=== PATIENT | male | born 1940 | race Caucasian/White ===

== ENCOUNTER 2018-11-02 20:24 | Observation (INO) ==
[2018-11-02] MEDS ORDERED: SODIUM CHLORIDE 0.9% 1000ML 1,000 ML IV SCH (21:00)
[2018-11-02 21:11] LABS: Basophils # (auto) 0.03 K/uL (0-0.2); Basophils % (auto) 0.4 %; Eosinophils # (auto) 0.49 K/uL (0-0.5); Eosinophils % (auto) 6.9 %; Hematocrit (blood only) 41.1 % (42-52); Hemoglobin 14.9 g/dL (14.0-18.0); Immature Granulocytes # (auto) 0.01 K/uL (0.00-0.02); Immature Granulocytes % (auto) 0.1 %; Lymphocytes # (auto) 1.76 K/uL (1.2-3.4); Lymphocytes % (auto) 24.8 %; Mean Corpuscular Hemoglobin 31.2 pg (25-34); Mean Corpuscular Hgb Conc 36.3 g/dL (32-36); Mean Platelet Volume 9.3 fL (7.4-10.4); Monocytes # (auto) 0.59 K/uL (0.11-0.59); Monocytes % (auto) 8.3 %; Neutrophils # (auto) 4.22 K/uL (1.4-6.5); Neutrophils % (auto) 59.5 %; Platelet Count 240 K/uL (130-400); RDW Coefficient of Variation 13.1 % (11.5-14.5); RDW Standard Deviation 41.8 fL (36.4-46.3); Red Blood Count 4.78 M/uL (4.7-6.1)
[2018-11-02 21:26] LABS: Alanine Aminotransferase 22 U/L (12-78); Albumin Level 3.2 gm/dl (3.4-5.0); Aspartate Aminotransferase 16 U/L (15-37); BUN Creatinine Ratio 6.9 (10-20); Blood Urea Nitrogen 9 mg/dl (7-18); Calcium 8.7 mg/dl (8.5-10.1); Carbon Dioxide 24 mmol/L (21-32); Chloride 111 mmol/L (98-107); Creatinine Clr Calc Pharmacy 51.5 ml/min; Est GFR (African American) 62.9; Est GFR (Non-African American) 54.3; Glucose 134 mg/dl (70-99); Magnesium 2.1 mg/dl (1.8-2.4); Potassium 3.3 mmol/L (3.5-5.1); Sodium 143 mmol/L (136-145)
[2018-11-02 21:36] LABS: Alkaline Phosphatase 66 U/L (45-117); Bilirubin,Total 0.7 mg/dl (0.2-1); Globulin 3.1 gm/dl (2.5-4.0); Total Protein 6.3 gm/dl (6.4-8.2); Troponin I < 0.015 ng/ml (0-0.045)
--- NOTE | 2018-11-02 22:00 | XRay Report ---
XR chest 1V portable CLINICAL HISTORY: weakness COMPARISON STUDY: No previous studies for comparison. FINDINGS: Lung volumes are normal. Lungs are clear. There is no pneumothorax or pleural effusion. Mil d cardiomegaly is noted. Mediastinal contours are normal. There is no evidence for pulmonary edema. IMPRESSION: 1. No acute cardiopulmonary findings. 2. Mild cardiomegaly. Electronically signed by: Shay Byrnes M.D. 11/02/2018 9:59 PM
[2018-11-02 23:29] LABS: Appearance Urine Clear (Clear); Bilirubin Urine Negative (Negative); Blood Urine Negative (Negative); Color Urine Yellow; Glucose Urine UA Negative (Negative); Ketones Urine Negative (Negative); Leukocyte Esterase Urine Negative (Negative); Nitrite Urine Negative (Negative); Protein Urine Negative (Negative); Specific Gravity Urine 1.013 (1.000-1.030); Urobilinogen Urine Negative (Negative)
--- NOTE | 2018-11-02 23:38 | Emergency Department Note ---
Entered by Mary Vasquez acting as a scribe for Tello Lemus MD ED Provider Note CHIEF COMPLAINT: Syncope HISTORY OF PRESENT ILLNESS: The patient is a 77 year old male who presents to the Emergency Room with complaints of two episodes of syncope that occurred just prior to arrival. The patient states that he was at a football game and was leaning on a fence when he hit his elbow on this fence, stating that a "hot flash went right through me". He states that once his elbow began to feel better he went to lean his arms back on the fence when he fell forward. The patient states that he did not hit his head. He states that he woke up after this episode and sat up. The patient states that after he got up he had another episode of syncope. Per EMS, the patient's blood pressure was low when they arrived. He was given 300 mL of IV fluids by EMS. He had some transient nausea. Pt denies headache, fevers, chills, diaphoresis, visual changes, neck pain, chest pain, breathing difficulties, vomiting, abdominal pain, back pain, melena, hematochezia, urinary symptoms, numbness, lymphadenopathy, rash, or other complaints. REVIEW OF SYSTEMS: See HPI for pertinent positives and negatives. A total of ten systems were reviewed and were otherwise negative. PMHx/PSHx: Tendon surgery, left hand SOCIAL HISTORY: Patient lives at home. PHYSICAL EXAM: GENERAL: Awake, alert, well-appearing, in no distress HENT: Normocephalic, atraumatic. Oropharynx unremarkable. EYES: PERRL. Normal conjunctiva. Sclera non-icteric. NECK: Inspection normal. Non-tender. Supple. No nuchal rigidity. FROM. No nighat s. RESPIRATORY: Clear to auscultation. No wheezes. No rales. Normal respiratory effort. CARDIAC: Normal rate. Normal rhythm. No murmurs. No rubs. Extremities warm and well perfused. Pulses equal. No JVD. GI: Soft, non-distended. No tenderness to palpation. No rebound or guarding. No masses. RECTAL: Deferred. MUSCULOSKELETAL: Atraumatic. Chest examination reveals no tenderness. The back is symmetrical on inspection without obvious abnormality. There is no CVA tenderness to palpation. No joint edema. LOWER EXTREMITIES: Calves are equal size bilaterally and non-tender. No edema. No discoloration. NEURO: Normal sensorium. No sensory or motor deficits noted. SKIN: No rash or jaundice noted. EMERGENCY DEPARTMENT COURSE: 2131: Past medical records reviewed. The patient was evaluated in room B5, and a complete history and physical examination were performed. 2299: The patient was reassessed and is doing well. Updated on findings and need for further monitoring in the hospital. 2314: The patient will be further evaluated by the cushion cover inspector hospitalist who accepts the patient for further evaluation. MEDICAL DECISION MAKING: B5 Triage Nursing notes reviewed and agree them. Additional history obtained from the family. The patient's history was concerning for syncope. Differential diagnosis: Etiologies such as infection, hypoglycemia, electrolyte abnormalities, cardiac sources, intracerebral event, toxicologic, neurologic, vasovagal, as well as others were entertained. Physical examination: As above. No injury sustained. Neurologically intact. Alert and oriented. ER treatment provided: IV hydration with normal saline On reassessment the patient felt better. Diagnostics interpretation by me: Cardiac monitoring: The patient was placed on continuous cardiac monitoring and observed. It revealed a normal sinus rhythm without ectopy or evidence of dysrhythmia. ECG: Normal without ischemia. The labs revealed an unremarkable CBC and chemistry panel except for slight hypokalemia. Imaging studies: Chest x-ray was performed and was negative for any acute disease. Consultation: A consultation was placed with Dr. Leon Cline, the hospitalist. The case was discussed and diagnostics were reviewed. He requested a head CT be ordered to assist him with the admission process. This was done. The patient was evaluated in the ER for further treatment. IMPRESSION: Syncope Hypotension Hypokalemia PLAN: Admission The scribe's documentation has been prepared under my direction and personally reviewed by me in its entirety. I confirm that the note above accurately reflects all work, treatment, procedures, and medical decision making performed by me. Impression & Plan Syncope, Hypotension Past Med/Surg History Medical History No significant past medical history Family History Other No pertinent family history in first degree relatives Social History Preferred Language: Italian Feels Safe at Home: Yes Smoking Status: Never smoker Results & Data Vital Signs Vital Signs - 24 hr 11/02/18 20:41 11/02/18 20:53 11/02/18 20:58 Temperature 36.9 C Temperature Source Oral Sepsis Recent Fever Within 48 Hours No Sepsis New/Unexplained Change in Mental Status No Sepsis Action Taken by Nursing No Action Required Pulse Rate 74 Pulse Rate from SpO2 Sensor Respiratory Rate 18 Blood Pressure 149/75 H Blood Pressure Mean 99 Pulse Oximetry 98 96 97 Oxygen Delivery Method Room Air Room Air Room Air 11/02/18 21:00 11/02/18 21:30 11/02/18 22:00 Temperature Temperature Source Sepsis Recent Fever Within 48 Hours Sepsis New/Unexplained Change in Mental Status Sepsis Action Taken by Nursing Pulse Rate 63 68 66 Pulse Rate from SpO2 Sensor 65 68 64 Respiratory Rate 23 19 20 Blood Pressure 114/70 138/73 138/69 Blood Pressure Mean 84 94 92 Pulse Oximetry 98 96 95 Oxygen Delivery Method Room Air Room Air Room Air 11/02/18 22:30 11/02/18 23:00 Temperature Temperature Source Sepsis Recent Fever Within 48 Hours Sepsis New/Unexplained Change in Mental Status Sepsis Action Taken by Nursing Pulse Rate 77 61 Pulse Rate from SpO2 Sensor 66 62 Respiratory Rate 24 14 Blood Pressure 130/76 135/78 Blood Pressure Mean 94 97 Pulse Oximetry 98 97 Oxygen Delivery Method Room Air Room Air Home Medications Current Medication List: was personally reviewed by me Laboratory Data Attestation: I reviewed the patient's lab results. Result diagrams: 11/02/18 19:50 11/02/18 19:50 Lab Results 11/02/18 11/02/18 11/02/18 Range/Units 19:50 19:50 23:15 WBC 7.10 (4.8-10.8) K/uL RBC 4.78 (4.7-6.1) M/uL Hgb 14.9 (14.0-18.0) g/dL Hct 41.1 L (42-52) % MCV 86.0 (80-100) fL MCH 31.2 (25-34) pg MCHC 36.3 H (32-36) g/dL RDW Std Deviation 41.8 (36.4-46.3) fL RDW Coeff of Heladio 13.1 (11.5-14.5) % Plt Count 240 (130-400) K/uL MPV 9.3 (7.4-10.4) fL Immature Gran % (Auto) 0.1 % Neut % (Auto) 59.5 % Lymph % (Auto) 24.8 % [place] % (Auto) 8.3 % Eos % (Auto) 6.9 % Baso % (Auto) 0.4 % Immature Gran # (Auto) 0.01 (0.00-0.02) K/uL Neut # (Auto) 4.22 (1.4-6.5) K/uL Lymph # (Auto) 1.76 (1.2-3.4) K/uL [place] # (Auto) 0.59 (0.11-0.59) K/uL Eos # (Auto) 0.49 (0-0.5) K/uL Baso # (Auto) 0.03 (0-0.2) K/uL Sodium 143 (136-145) mmol/L Potassium 3.3 L (3.5-5.1) mmol/L Chloride 111 H (98-107) mmol/L Carbon Dioxide 24 (21-32) mmol/L Anion Gap 8.0 (3-11) BUN 9 (7-18) mg/dl Creatinine 1.26 (0.6-1.4) mg/dl Est Cr Clr Drug Dosing 51.5 ml/min Est GFR ( Amer) 62.9 Est GFR (Non-Af Amer) 54.3 BUN/Creatinine Ratio 6.9 L (10-20) Glucose 134 H (70-99) mg/dl Calcium 8.7 (8.5-10.1) mg/dl Magnesium 2.1 (1.8-2.4) mg/dl Total Bilirubin 0.7 (0.2-1) mg/dl AST 16 (15-37) U/L ALT 22 (12-78) U/L Alkaline Phosphatase 66 (45-117) U/L Troponin I < 0.015 (0-0.045) ng/ml Total Protein 6.3 L (6.4-8.2) gm/dl Albumin 3.2 L (3.4-5.0) gm/dl Globulin 3.1 (2.5-4.0) gm/dl Albumin/Globulin Ratio 1.0 (0.9-2) TSH 2.840 (0.300-4.500) uIu/ml Urine Color Yellow Urine Appearance Clear (Clear) Urine pH 7.0 (4.5-7.5) Ur Specific [place] 1.013 (1.000-1.030) Urine Protein Negative (Negative) Urine Glucose (UA) Negative (Negative) Urine Ketones Negative (Negative) Urine Blood Negative (Negative) Urine Nitrite Negative (Negative) Urine Bilirubin Negative (Negative) Urine Urobilinogen Negative (Negative) Ur Leukocyte Esterase Negative (Negative) Administered Medications Sodium Chloride (Nss 1000ml) 1,000 mls @ 125 mls/hr IV .Q8H RAVEN Stop: 11/03/18 04:59 Last Admin: 11/02/18 21:33 Dose: 125 mls/hr Documented by: [id number] Imaging Data Radiologist's Impression: Radiology results as stated below per my review and the radiologist's interpretation: XR chest 1V portable CLINICAL HISTORY: weakness COMPARISON STUDY: No previous studies for comparison. FINDINGS: Lung volumes are normal. Lungs are clear. There is no pneumothorax or pleural effusion. Mild cardiomegaly is noted. Mediastinal contours are normal. There is no evidence for pulmonary edema. IMPRESSION: 1. No acute cardiopulmonary findings. 2. Mild cardiomegaly. Electronically signed by: Shay Byrnes M.D. 11/02/2018 9:59 PM ECG Data Attestation: I personally reviewed and interpreted this ECG as follows: Indication: syncope Rate (beats per minute): 69 Rhythm: normal sinus Findings: + Q waves (inferior); no PAC, no PVC, no ST depression and no ST elevation Blood Pressure Blood Pressure Findings: Normal blood pressure Discharge Plan Visit Data Chief Complaint: Syncope Stated Complaint: syncope ED Provider: Tello Lemus Discharge Problem: Syncope, Hypotension Patient Disposition: Being Evaluated by Hospitalist Forms Stand Alone Forms: My [facility] [employer] Prescriptions Prescriptions: No Action No Known Home Medications RF: 0 Referrals Referrals: Urbano Guerrero MD [Primary Care Provider] - Discharge Problem: Syncope Qualifiers: Syncope type: unspecified Qualified Code(s): R55 - Syncope and collapse Hypotension Qualifiers: Hypotension type: unspecified hypotension type Qualified Code(s): I95.9 - Hypotension, unspecified The scribe's documentation has been prepared under my direction and personally reviewed by me in its entirety. I confirm that the note above accurately reflects all work, treatment, procedures, and medical decision making performed by me.
[2018-11-03] MEDS ORDERED: OPTIRAY 320 125ml IV PRN (02:09)
[2018-11-03] MEDS ORDERED: MAGNESIUM HYDROXIDE SUSP 30 ML UDC PO PRN (02:24)
[2018-11-03] MEDS ORDERED: ACETAMINOPHEN 325 MG TAB PO PRN (02:24)
[2018-11-03] MEDS ORDERED: ONDANSETRON INJ 2 MG/ML 2 ML VIAL IV PRN (02:24)
[2018-11-03] MEDS ORDERED: ALUMINUM/MAGNESIUM SUSP 30 ML UDC PO PRN (02:24)
--- NOTE | 2018-11-03 05:07 | History & Physical Report ---
Date of Service November 03, 2018 Assessment & Plan (1) Syncope: Syncope x2, seconds apart- The patient will be admitted to telemetry for serial cardiac enzymes, serial EKG's, cardiac rhythm monitoring and a 2-D echocardiogram with Dopplers. CT of head negative. Order CTA head and neck. Start aspirin 81 mg p.o. daily. NSS + KCl 20 mEq at 100 mils per hour. Patient reports that he felt dehydrated prior to the event, and is likely more of a vasovagal syncopal event. Consult neurology Present on Admission?: Yes (2) Hypokalemia: Replace with IV fluids, and recheck in the a.m. Present on Admission?: Yes (3) Hyperglycemia: Check hemoglobin A1c and fasting lipid panel in the a.m. Present on Admission?: Yes History of Present Illness Chief Complaint: The patient presents to the emergency department with 2 syncopal episodes that occurred just prior to arrival. Primary Care Provider: Urbano Guerrero MD The patient is a 77-year-old male who reports he was leaning over a fence at a baseball game, his right arm slipped and his elbow jabbed against the fence. He was rubbing his arm due to the pain, and the next thing he knew he was looking up at the darline. He then reports that he tried to get up, and he passed out again. There was then onlookers who came by, and would not allow him to get up anymore at that point. EMS then came, and drove him to the emergency department for assessment. 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 Beliefs That Will Affect Care: None Current Living Situation: Alone Current Living Situation Comment: went to [place] [facility] Feels Safe at Home: Yes Safety Concerns: Feels Safe At This Time Smoking Status: Never smoker Hx Alcohol Use: Yes Alcohol type: beer Hx Substance Use: No Review of Systems Review of Systems: The patient denies chest pain, palpitations, shortness of breath, dyspnea on exertion, cough, lower extremity swelling, sore throat, fevers, chills, sweats, weight change, fatigue, nausea, vomiting, diarrhea , constipation, abdominal pain, pelvic pain, blood in urine or stool, dysuria, urinary frequency or urgency, rash, abnormal bruising or bleeding, focal weakness, numbness or tingling in arms or legs, generalized arthralgias or myalgias, back or neck pain, or night sweats. The review of systems is otherwise negative other than for that already noted above, and at least 10 systems have been reviewed. Physical Exam Physical Exam: The patient is awake, alert and oriented 3, well developed and well nourished, normocephalic and atraumatic, lying in bed and in no acute distress. HEENT--PERRL, EOMI, mucous membranes and oropharynx dry. Neck--supple. No JVD. No bruits. Thyroid normal, trachea midline, no adenopathy. Heart--normal S1 and S2. No murmurs, rubs or gallops. Lungs--clear bilaterally, no respiratory distress, no accessory muscle use. Abdomen--normal bowel sounds and soft. Nontender. Nondistended, no hernias or masses, no organomegaly. Extremities--no cyanosis or clubbing. No edema. There are good distal pulses b/l. Dermatologic--normal skin turgor, normal color, no abnormal lymph nodes, no rash. Neurologic--cranial nerves II through XII grossly intact. Rheumatologic--normal range of motion. Psychiatric--normal affect. Results & Data Vital Signs (Past 12 Hours) Vital Signs Temp Pulse Pulse Resp BP BP Pulse Ox 11/03/18 04:31 70 11/03/18 02:43 61 159/73 H 11/03/18 02:16 97.9 F 66 16 99 11/03/18 01:51 54 L 16 126/78 96 11/03/18 01:30 57 L 17 126/78 96 11/03/18 01:00 56 L 16 131/66 97 11/03/18 00:30 64 22 110/66 96 11/03/18 00:01 60 19 133/75 97 11/02/18 23:45 68 22 104/72 99 11/02/18 23:31 134/97 11/02/18 23:08 18 156/101 H 99 11/02/18 23:00 61 14 135/78 97 11/02/18 22:30 77 24 130/76 98 11/02/18 22:00 66 20 138/69 95 11/02/18 21:30 68 19 138/73 96 11/02/18 21:00 63 23 114/70 98 11/02/18 20:58 97 11/02/18 20:53 96 11/02/18 20:41 98.4 F 74 18 149/75 H 98 Laboratory Results Laboratory Results WBC 7.10 K/uL (4.8-10.8) 11/02/18 19:50 RBC 4.78 M/uL (4.7-6.1) 11/02/18 19:50 Hgb 14.9 g/dL (14.0-18.0) 11/02/18 19:50 Hct 41.1 % (42-52) L 11/02/18 19:50 MCV 86.0 fL (80-100) 11/02/18 19:50 MCH 31.2 pg (25-34) 11/02/18 19:50 MCHC 36.3 g/dL (32-36) H 11/02/18 19:50 RDW Std Deviation 41.8 fL (36.4-46.3) 11/02/18 19:50 RDW Coeff of Heladio 13.1 % (11.5-14.5) 11/02/18 19:50 Plt Count 240 K/uL (130-400) 11/02/18 19:50 MPV 9.3 fL (7.4-10.4) 11/02/18 19:50 Immature Gran % (Auto) 0.1 % 11/02/18 19:50 Neut % (Auto) 59.5 % 11/02/18 19:50 Lymph % (Auto) 24.8 % 11/02/18 19:50 [place] % (Auto) 8.3 % 11/02/18 19:50 Eos % (Auto) 6.9 % 11/02/18 19:50 Baso % (Auto) 0.4 % 11/02/18 19:50 Immature Gran # (Auto) 0.01 K/uL (0.00-0.02) 11/02/18 19:50 Neut # (Auto) 4.22 K/uL (1.4-6.5) 11/02/18 19:50 Lymph # (Auto) 1.76 K/uL (1.2-3.4) 11/02/18 19:50 [place] # (Auto) 0.59 K/uL (0.11-0.59) 11/02/18 19:50 Eos # (Auto) 0.49 K/uL (0-0.5) 11/02/18 19:50 Baso # (Auto) 0.03 K/uL (0-0.2) 11/02/18 19:50 Sodium 143 mmol/L (136-145) 11/02/18 19:50 Potassium 3.3 mmol/L (3.5-5.1) L 11/02/18 19:50 Chloride 111 mmol/L (98-107) H 11/02/18 19:50 Carbon Dioxide 24 mmol/L (21-32) 11/02/18 19:50 Anion Gap 8.0 (3-11) 11/02/18 19:50 BUN 9 mg/dl (7-18) 11/02/18 19:50 Creatinine 1.26 mg/dl (0.6-1.4) 11/02/18 19:50 Est Cr Clr Drug Dosing 51.5 ml/min 11/02/18 19:50 Est GFR ( Amer) 62.9 11/02/18 19:50 Est GFR (Non-Af Amer) 54.3 11/02/18 19:50 BUN/Creatinine Ratio 6.9 (10-20) L 11/02/18 19:50 Glucose 134 mg/dl (70-99) H 11/02/18 19:50 Calcium 8.7 mg/dl (8.5-10.1) 11/02/18 19:50 Magnesium 2.1 mg/dl (1.8-2.4) 11/02/18 19:50 Total Bilirubin 0.7 mg/dl (0.2-1) 11/02/18 19:50 AST 16 U/L (15-37) 11/02/18 19:50 ALT 22 U/L (12-78) 11/02/18 19:50 Alkaline Phosphatase 66 U/L (45-117) 11/02/18 19:50 Troponin I < 0.015 ng/ml (0-0.045) 11/02/18 19:50 Total Protein 6.3 gm/dl (6.4-8.2) L 11/02/18 19:50 Albumin 3.2 gm/dl (3.4-5.0) L 11/02/18 19:50 Globulin 3.1 gm/dl (2.5-4.0) 11/02/18 19:50 Albumin/Globulin Ratio 1.0 (0.9-2) 11/02/18 19:50 TSH 2.840 uIu/ml (0.300-4.500) 11/02/18 19:50 Urine Color Yellow 11/02/18 23:15 Urine Appearance Clear (Clear) 11/02/18 23:15 Urine pH 7.0 (4.5-7.5) 11/02/18 23:15 Ur Specific [place] 1.013 (1.000-1.030) 11/02/18 23:15 Urine Protein Negative (Negative) 11/02/18 23:15 Urine Glucose (UA) Negative (Negative) 11/02/18 23:15 Urine Ketones Negative (Negative) 11/02/18 23:15 Urine Blood Negative (Negative) 11/02/18 23:15 Urine Nitrite Negative (Negative) 11/02/18 23:15 Urine Bilirubin Negative (Negative) 11/02/18 23:15 Urine Urobilinogen Negative (Negative) 11/02/18 23:15 Ur Leukocyte Esterase Negative (Negative) 11/02/18 23:15 Diagnostic Findings [place], [place] [phone] XRay Report Patient: ADNI DOW AAdmit Date: 11/02/18 MR#: [id number]: [address] Acct ID:[id number]: Date: [address] Zip: [place] [address] Age: 77Location: ED Sex: M Room/Bed: Att Phy: Diagnosis: syncope Najma Phy: Urbano Guerrero MDService Date: 11/02/18 [facility] Phy: Interpreting Phy: Shay Byrnes MD Admit Phy: Ordering Phy: Tello eLmus MD cc: ~ XR chest 1V portable CLINICAL HISTORY: weakness COMPARISON STUDY: No previous studies for comparison. FINDINGS: Lung volumes are normal. Lungs are clear. There is no pneumothorax or pleural effusion. Mild cardiomegaly is noted. Mediastinal contours are normal. There is no evidence for pulmonary edema. IMPRESSION: 1. No acute cardiopulmonary findings. 2. Mild cardiomegaly. Electronically signed by: Shay Byrnes M.D. 11/02/2018 9:59 PM Dictated: 11/02/182157 Transcribed: 11/02/182157 Code Status & VTE Plan Code Status Full code VTE Prophylaxis Plan VTE Prophylaxis will be ordered: Yes PG Care Time/CCT Total # of Minutes Spent Total Time Spent with Patient: Total time spent is greater than 50% in coordination of care (as documented) at patient's floor/unit and/or counseling patient: (1) Syncope Syncope type: unspecified Qualified Code(s): R55 - Syncope and collapse
--- NOTE | 2018-11-03 07:07 | CT Scan Report ---
CT OF THE HEAD WITHOUT CONTRAST CLINICAL HISTORY: Syncope. COMPARISON STUDY: No previous studies for comparison. CT DOSE: 537.48 mGy.cm TECHNIQUE: Helical axial images of the head were obtained without IV contrast. Automated exposure con trol was utilized for the study. A dose lowering technique was utilized adhering to the principles o f ALARA. FINDINGS: No acute intracranial hemorrhage, midline shift or mass effect is present. The ventricular system is unremarkable. The basilar cisterns are patent. No extra-axial collections are present. Ther e are no findings to suggest acute dural sinus thrombosis or acute territorial infarct. No significan t calvarial abnormalities are present. Visualized portions of the sinuses and mastoid air cells are c lear. IMPRESSION: No acute intracranial findings. Electronically signed by: Shay Byrnes M.D. 11/03/2018 7:06 AM
[2018-11-03 07:28] VITALS: O2SAT 97
--- NOTE | 2018-11-03 07:38 | CT Scan Report ---
CT ANGIOGRAPHY OF THE NECK WITH CONTRAST CLINICAL HISTORY: Syncope. COMPARISON STUDY: No previous studies for comparison. Technique: CT angiography of the carotid and vertebral arteries was obtained using [employer] 320 IV and 3D reconstruction on an independent workstation. NASCET criteria was utilized. Automated exposure c ontrol was utilized for the study. A dose lowering technique was utilized adhering to the principles of ALARA. CT DOSE: 585.48 mGy.cm Findings: The bilateral common carotid, internal carotid and vertebral arteries are patent. There is no stenosis within these vessels. There is no dissection. Visualized portions of the ascending aorta measure up to 4.3 cm. Lung apices are clear. There is no cervical lymphadenopathy. No cervical spine fracture is noted. The CTA of the head will be reported separately. IMPRESSION: 1. Unremarkable CTA of the neck. No dissection or stenosis. 2. Mild dilatation of visualized portions of the distal ascending aorta which measures 4.3 cm. Electronically signed by: Shay Byrnes M.D. 11/03/2018 7:36 AM
--- NOTE | 2018-11-03 07:40 | CT Scan Report ---
CTA ANGIOGRAPHY OF THE HEAD CLINICAL HISTORY: Syncope. COMPARISON STUDY: Head CT November 02, 2018. TECHNIQUE: Helical axial images of the head were obtained following uneventful intravenous administr ation of 119 cc of Optiray 320. Automated exposure control was utilized for the study. A dose lower ing technique was utilized adhering to the principles of ALARA. FINDINGS: No acute intracranial hemorrhage, midline shift or mass effect is present. Brain volume is normal. Ventricular system is normal. The basilar cisterns are patent. There are no extra-axial colle ctions. The bilateral M1, M2, A1 and A2 segments are patent. Posterior circulation is intact. There i s no abrupt vessel cut off. There is no dissection. No intracranial aneurysm is identified. IMPRESSION: Unremarkable CTA of the head. Electronically signed by: Shay Byrnes M.D. 11/03/2018 7:39 AM
--- NOTE | 2018-11-03 08:43 | Neurology Consultation ---
Date of Consultation November 03, 2018 Assessment & Plan (1) Syncope: Probable episode of vasovagal syncope. There is no evidence for stroke, vertebrobasilar insufficiency, carotid occlusive disease, epilepsy, or any significant primary neurologic process in this patient. I do not have any f urther specific neurological recommendations. Consider further cardiac evaluation (echocardiogram, 30-day event monitor?) No indication for additional neurological testing at this time. History of Present Illness Reason for Consultation: Syncope Requesting Physician: Leon Cline Attending Physician: Michel Talavera DO History of Present Illness The patient is a 77-year old male with a chief complaint of loss of consciousness. He was attending a ball game, leaning over a fence, and somehow slipped and banged his left elbow into the edge of the fence. He recalls having some left elbow/arm pain as if he struck his "funny bone" (ulnar nerve) at that time. He also recalls a feeling of heat and dizziness prior to falling to the ground and passing out. He recalls immediately regaining consciousness and trying to get up on his own. Apparently, he then had another brief episode of loss of consciousness. He recalls arguing with critical power install technician as he did not want to come to the hospital. Per the emergency department record, EMS had indicated that his blood pressure was low when they arrived and he was treated with intravenous fluids. He also complained of some nausea. The patient denies sustaining any significant injuries as a result of this event. He does not think he struck his head. He does not complain of any significant bumps, bruises, muscle or joint pain at this time. He denies headache, vision change, vertigo, change in speech, focal weakness or sensory loss. He has never had an episode of loss of consciousness in the past. He does admit to occasionally getting dizzy, typically when standing up too quickly. He believes he may have been dehydrated at the time of the episode yesterday. He denies a history of epilepsy or seizure disorder. He currently feels quite well does not have any specific or focal neurological complaints. He denies a past medical history of any significant cardiopulmonary disease. No known history of myocardial infarction, congestive heart failure, or cardiac arrhythmia. He has been physically healthy and admits that he does not really see a doctor very often. He does not take any prescription medications. 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 He is a non-smoker. He denies a family history of epilepsy or seizure disorder in any first-degree family member. Additional d etails as below. Allergies Allergy/AdvReac Type Severity Reaction Status Date / Time No Known Allergies Allergy Unverified 11/02/18 21:56 Home Medications Home Medications Medication Instructions Recorded Confirmed Type No Known Home Medications 11/02/18 11/02/18 History Patient History Medical History No significant past medical history Family History Other No pertinent family history in first degree relatives Social History Preferred Language: Tongan Communication Ability: Effective Briar Cutter Required: No Beliefs That Will Affect Care: None Current Living Situation: Alone Current Living Situation Comment: went to [facility] Feels Safe at Home: Yes Safety Concerns: Feels Safe At This Time Smoking Status: Never smoker Hx Alcohol Use: Yes Alcohol type: beer Hx Substance Use: No Review of Systems Constitutional: no fever, no chills and no fatigue Eyes: no blind spots and no diplopia Ear, Nose, Mouth, Throat: no tinnitus and no hearing loss Respiratory: no cough and no dyspnea Cardiovascular: no chest pain and no palpitations Gastrointestinal: no nausea and no vomiting Genitourinary: no dysuria and no urinary incontinence Musculoskeletal: no back pain, no neck pain, no joint pain, no myalgia and no muscle weakness Integumentary: no rash and no lesions Neurologic: as per Subjective / HPI; no unsteadiness, no localized weakness, no generalized weakness, no loss of sensation, no paresthesia, no lack of coordination, no tremor(s), no abnormal movements, no headache(s), no abnormal speech, no confusion and no memory loss Psychiatric: no depression and no anxiety Hematologic / Lymphatic: no easy bleeding and no easy bruising Physical Exam Physical Exam: The patient is a well-developed, well-nourished elderly male. He is alert and fully oriented. Recent and remote memory intact. Attention and concentration normal. Patient exhibits a normal spontaneous speech pattern as well as an age-appropriate fund of knowledge. Visual hyatt full to confrontation. Visual acuity normal. Pupils equal round react to light and accommodation. Eye movements normal. Facial sensation intact. There is no facial droop or weakness. Hearing intact. Palate elevates to midline. Shoulder shrug intact. Tongue protrudes to midline. Sensation intact to all modalities in all 4 limbs. Deep tendon reflexes intact and symmetrical for the arms and legs. Plantar responses downgoing bilaterally. There is no dysdiadochokinesia or dysmetria [id number] or [id number] bilaterally. Ophthalmoscopic examination reveals normal-appearing optic disks and posterior segments. No papilledema or hemorrhages. Carotid pulses normal bilaterally, no bruits to auscultation. Gait and station normal. Patient exhibits normal muscle strength and tone for all 4 limbs proximally and distally. No atrophy. No abnormal movements observed. Results & Data Vital Signs (Past 12 Hours) Vital Signs Temp Pulse Pulse Resp BP BP Pulse Ox 11/03/18 07:29 50 L 11/03/18 07:28 36.4 C L 51 L 148/81 H 97 11/03/18 04:31 70 11/03/18 02:43 61 159/73 H 11/03/18 02:16 36.6 C 66 16 99 11/03/18 01:51 54 L 16 126/78 96 11/03/18 01:30 57 L 17 126/78 96 11/03/18 01:00 56 L 16 131/66 97 11/03/18 00:30 64 22 110/66 96 11/03/18 00:01 60 19 133/75 97 11/02/18 23:45 68 22 104/72 99 11/02/18 23:31 134/97 11/02/18 23:08 18 156/101 H 99 11/02/18 23:00 61 14 135/78 97 11/02/18 22:30 77 24 130/76 98 11/02/18 22:00 66 20 138/69 95 11/02/18 21:30 68 19 138/73 96 11/02/18 21:00 63 23 114/70 98 11/02/18 20:58 97 11/02/18 20:53 96 11/02/18 20:41 36.9 C 74 18 149/75 H 98 Laboratory Results WBC 7.10, hemoglobin 14.9, hematocrit 41.1, platelet count 240, sodium 143, potassium 3.3, BUN 9, creatinine 1.26, glucose 134, calcium 8.7, magnesium 2.1, AST 16, ALT 22, TSH 2.[address] of the head negative for hemorrhage or acute process. Mild generalized atrophy. No ventriculomegaly. I reviewed the images as well as the radiologist interpretation of this test. CT angiogram of the head unremarkable. CT angiogram of the neck negative for stenosis or dissection. There is mild dilatation of the visualized portions of the distal ascending aorta which measures 4.3 cm. Electrocardiogram reveals normal sinus rhythm, 69 bpm. (1) Syncope Syncope type: unspecified Qualified Code(s): R55 - Syncope and collapse
[2018-11-03] MEDS ORDERED: ASPIRIN 81 MG ECTAB PO SCH (09:00)
[2018-11-03] MEDS ORDERED: IOVERSOL 100ml IV PRN (13:56)
--- NOTE | 2018-11-03 14:36 | CT Scan Report ---
CT OF THE CHEST WITH IV CONTRAST CLINICAL HISTORY: Aortic dilation seen on neck CTA and echo. COMPARISON STUDY: No previous studies for comparison. TECHNIQUE: Following IV administration of 94 mL of Optiray-320, helical axial images of the chest we re obtained. Sagittal and coronal reconstructions were viewed as well as maximal intensity projectio ns on an independent 3-D workstation. Automated exposure control was utilized for the study. A dose lowering technique was utilized adhering to the principles of ALARA. CT DOSE: 354.56 mGy.cm FINDINGS: The heart is moderately enlarged. No enlarged thoracic lymph nodes are present. There is n o thoracic aortic dissection. There is moderate coronary artery calcification. The ascending aorta me asures 5.2 x 5 cm at the level of the main pulmonary artery. Aorta measures approximately 4.3 cm at t he level the sinuses of Valsalva. Central airways are patent. There is no consolidation. No pneumotho rax or pleural effusion is noted. Several small water attenuation pancreatic lesions are noted, inclu ding a 1.5 cm lesion within the pancreatic head. A few smaller pancreatic body cystic lesions are not ed. There is no pancreatic or biliary ductal dilatation. Gallstone is noted. IMPRESSION: 1. Aneurysmal dilatation of the ascending aorta, measuring 5.2 x 5 cm, at the level of the main pulmo nary artery. No thoracic aortic dissection. 2. Moderate cardiomegaly and coronary artery calcification. 3. 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 No pancreat ic ductal dilatation. 4. Cholelithiasis. Electronically signed by: Shay Byrnes M.D. 11/03/2018 2:35 PM
[2018-11-03 15:21] VITALS: BP 122/64; PULSE 50; TEMP 97.7
--- NOTE | 2018-11-03 17:02 | Discharge Summary ---
Date of Service November 03, 2018 Admission HPI Per Admitting Provider The patient is a 77-year-old male who reports he was leaning over a fence at a baseball game, his right arm slipped and his elbow jabbed against the fence. He was rubbing his arm due to the pain, and the next thing he knew he was looking up at the darline. He then reports that he tried to get up, and he passed out again. There was then onlookers who came by, and would not allow him to get up anymore at that point. EMS then came, and drove him to the emergency department for assessment. Discharge Data Consultations 11/03/18 02:04 ED Decision to Admit Stat 11/03/18 02:24 Consult Case Management - Discharge Planning Routine 11/03/18 05:06 Consult Neurology Routine 11/03/18 14:53 Consult [facility] manager development Routine Hospital Course (1) Syncope: 77 y/o M who presented following two syncopal episodes, with immediate recovery before travel to ER Syncope: -Probable episode of vasovagal syncope, likely dehydrated based on story of day leading up to events -CT Head, CTA did not show any source for syncopal episodes -Echo did not demonstrate any structural abnormalities -Consider further cardiac evaluation - ordered 7 day event monitor Aortic Dilation: -CT chest demonstrated 5.2cm x 5cm dilation of the ascending aorta -Pt typically hypertensive during admission, advised to monitor/record BP three times daily over next two weeks following discharge -will need follow-up with Vascular surgery for close monitoring, and repeat CT chest in 6 months Supervising Physician Co-Signing Physician Notes I personally examined the patient and verified all sheridan points of history and exam, discussed case, and agree with decision making with Dr Hernandez. Feeling better. Would like to go home. Has no recollection of the time from whenever his elbow had numb or tingling sensation whenever he was on the ground. No prodrome. Vitals noted, in general he is awake and alert pleasant no distress. HEENT normocephalic atraumatic mucous members are moist. Breathing unlabored no accessory muscle use good effort. Skin shows no rashes no pallor or icterus. No focal neuro deficits. Syncopemost likely was vagal compounded by dehydration. Given his age and the fact that he has no prodrome, we will ask to get him set up for a cardiac event monitor as an outpatient. That said his echocardiogram showing no structural heart disease and his inpatient rhythm monitoring not showing any worrisome rhythms is quite reassuring. Thoracic aortic aneurysmwe discussed this at length and in detail. He shows no symptoms related to it, and right now it appears that likely watchful waiting and serial imaging will be the right approach. Will ask that he gets referred to vascular surgery to supervised follow-up of this. I also discussed with him in detail that blood pressure control definitely affects aneurysm growth/rupture. In this regard, his blood pressure control in the hospital was questionable, given the excitement of his overall situation. We asked that he check his blood pressure 2-3 times a day at random over the next 1 to 2 weeks, and then follow-up with his PCP. His family noted repeatedly throughout our discussions (especially whenever related to the director of cardiac cath lab in the home blood pressure checks) that the patient himself is generally noncompliant does not follow through with recommended treatments. I discussed with him kindly but frankly that the certain situations do require him to take a degree of personal responsibility (as above outlined) or he could easily face potentially lethal consequences. He expressed understanding. Resident Activity Tracking Resident Involvement: Resident Care Provided Care Provided: Adult Hospital Medicine
== END 2018-11-03 17:44 | disposition home or self-care (01) ==
LOC: ED 20:24 → 2N 20:24 → SUATTDRO 11-03 01:13 → 2N 11-03 01:51